=== PATIENT | male | born 1965 | race Caucasian/White ===

== ENCOUNTER 2025-04-21 00:34 | Inpatient (IN) | payer MEDICAID ==
[~2025-04-21] VITALS: Ht 190.5 cm; Wt 170.3 kg
--- NOTE | 2025-04-21 00:46 | Physician Documentation ---
History of Present Illness General Stated Complaint: LEG PAIN Time Seen by MD: 00:37 History of Present Illness Initial Comments This is a 59-year-old gentleman who self reports history of congestive heart failure, chronic bilateral lower extremity swelling, presents for evaluation of bilateral, right greater than left, swelling, pain for the last month. Also reports pain in his feet. No obvious trigger provocation. No palliating or aggravating factors. Does not know his ejection fraction. Does not have a formal diagnosis of diabetes states that he was diagnosed with a prediabetes . Came in today simply because could not stand the pain anymore. 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 Denies any concerns for tobacco, alcohol or illicit substances use Medication Reconciliation Allergies: Coded Allergies: No Known Allergies (Unverified , 04/21/25) Review of Systems ROS 10 point review of systems was performed and unless noted above in HPI is negative for acute process/complaint. Constitutional: Denies: fever, chills Physical Exam Physical Exam Physical Exam GENERAL: Awake, alert, oriented, GCS 15, no apparent distress, non-toxic appearing, answers questions, follows commands appropriately. High BMI gentleman examined immediately upon arrival on EMS gurney. HEENT: Atraumatic, normocephalic, pupils equal, extraocular muscles intact, sclerae anicteric, mucus membranes moist, oropharynx is clear, no stridor. NECK: supple, full active range of motion, trachea midline, no thyromegaly, no lymphadenopathy, no JVD. CARDIOVASCULAR: regular rate/rhythm, no murmurs/gallops/rubs, Pulses are 2+ in all extremities and symmetric. Capillary refill less than 2 seconds. PULMONARY: Nonlabored, good air movement ,no respiratory distress, speaking in full sentences, clear to auscultation bilaterally, no wheezing, no ronchi, no rales, no accessory muscle use. GASTROINTESTINAL: Soft, non-tender, non-distended, normal active bowel sounds, no organomegaly, no pulsatile masses, no CVA tenderness. NEUROLOGIC: Lucid with normal mental status. Normal facial symmetry. Moves all extremities symmetrically and with purpose. No truncal ataxia. Speech is fluid without evidence of dysarthria or aphasia, no focal deficits appreciated. MUSCULOSKELETAL: There is full range of motion of all extremities. There is no joint pain or joint swelling or joint erythema. There is no muscle pain or tenderness or swelling. EXTREMITIES: warm, poorly-perfused, bilateral cyanotic feet, no clubbing, no edema, no acute deformities. Chronic venous stasis changes to bilateral lower extremities. Multiple ulcerations in bilateral lower extremities, right greater than left. Some honey crusting discharge in the right lower extremity. Skin: warm, dry, no rashes or lesions, no jaundice, no petechiae orpurpura. No ecchymosis. PSYCHIATRIC: Normal affect, normal insight, normal concentration. Focused exam: [] Progress Results/Orders Results/Orders Orders - JORDI MILLS DO Culture Blood (04/21/25 00:38) Chest,Single View (04/21/25:38) Monitor (04/21/25 00:38) Saline Lock (04/21/25:38) Hs Troponin I W Calculations (04/21/25 02:38) Tib/Fib (04/21/25 00:38) Foot, Complete (3vw Min) (04/21/25 ) Magnesium Sulf-Water 2g/50ml (Magnesium (04/21/25 00:55) Completed Orders - JORDI MILLS DO Electrocardiogram (04/21/25:38) Cbc/Diff (04/21/25 00:38) ESR (04/21/25 00:38) C-Reactive Protein (04/21/25 00:38) Pt Inr (04/21/25:38) PTT (04/21/25 00:38) Chest,Single View (04/21/25:38) PBNP (04/21/25 00:38) MG (04/21/25 00:38) CMP (04/21/25 00:38) Hs Troponin I W Calculations (04/21/25:38) Lacticsepsis (04/21/25 00:38) Tib/Fib (04/21/25 00:38) Foot, Complete (3vw Min) (04/21/25 ) Gabapentin Capsule (Neurontin Capsule) (04/21/25 00:45) Medications Received in ER Medications (Trade) Dose Ordered Sig/Lauren Route PRN Reason Start Time Stop Time Status Last Admin Dose Admin (Neurontin capsule) 400 mg ONCE ONCE PO 04/21/25 00:45 04/21/25 02:25 DC 04/21/25 02:33 400 MG Magnesium Sulfate 50 ml @ 25 mls/hr ONCE ONCE IV 04/21/25 00:55 04/21/25 02:54 04/21/25 02:33 25 MLS/HR Vital Signs 04/21/25 04/21/25 04/21/25 00:46 00:52 01:42 Temp 98.5 Pulse 54 105 Resp 20 18 B/P (MAP) 135/92 131/89 (103) Pulse Ox 97 99 O2 Flow Rate 0 Laboratory Tests Test 04/21/25 01:00 White Blood Count 9.3 Red Blood Count 4.83 Hemoglobin 15.5 Hematocrit 46.5 Mean Corpuscular Volume 96.3 Mean Corpuscular Hemoglobin 32.1 H Mean Corpuscular Hemoglobin Concent 33.4 Red Cell Distribution Width 17.0 H Platelet Count 270 Mean Platelet Volume 8.5 Neutrophils (%) (Auto) 62.5 Lymphocytes (%) (Auto) 27.6 Monocytes (%) (Auto) 6.6 Eosinophils (%) (Auto) 2.1 Basophils (%) (Auto) 1.2 H Neutrophils # (Auto) 5.8 Lymphocytes # (Auto) 2.6 Monocytes # (Auto) 0.6 Eosinophils # (Auto) 0.2 Basophils # (Auto) 0.1 CBC Comment Erythrocyte Sedimentation Rate 5 Prothrombin Time 13.0 H INR International Normalized Ratio 1.3 Activated Partial Thromboplast Time 30 Coagulation Comments Sodium Level 137 Potassium Level 4.1 Chloride Level 100 Carbon Dioxide Level 24.3 Anion Gap 13 Blood Urea Nitrogen 9 Creatinine 1.00 Estimated GFR/1.73 m2 76 BUN/Creatinine Ratio 9.0 L Glucose Level 128 H Lactic Acid Level 3.2 H Calcium Level 8.6 Magnesium Level 2.0 Total Bilirubin 1.4 H Aspartate Amino Transf (AST/SGOT) 37 Alanine Aminotransferase (ALT/SGPT) 44 Alkaline Phosphatase 117 H Troponin I High Sensitivity 100 *H C-Reactive Protein 2.59 H Pro-B-Type Natriuretic Peptide 5241 H Total Protein 7.7 Albumin 3.4 Globulin 4.3 Albumin/Globulin Ratio 0.8 L Chemistry Comments EKG/XRAY/CT/US/VASC/MRI EKG : Additional Comment EKG was obtained and interpreted by myself shows sinus tachycardia rate of 133, normal OR interval, narrow QRS, prolonged QTC, normal axis, no STEMI. Multiple PVCs including a runs of monomorphic PVCs. Medical Decision Making Additional information obtaine: other (EMS) Findings Facility Status: ED Holds, RME process The plan was discussed with the patient, who demonstrates clear understanding of the plan and is in agreement with the plan unless otherwise noted in the chart. All questions have been answered, all concerns were addressed unless otherwise documented. I was available throughout their ED stay for frequent reassessment and questions. Differential Diagnoses (considered and possible or likely): [Cellulitis, chronic venous static changes, CHF, unlikely DVT, unlikely necrotizing infection, unlikely abscess, unlikely osteomyelitis. Peripheral arterial disease has also been considerably. Peripheral venous disease is self evident on clinical examination.] ??Differential Diagnoses (considered and unlikely, not requiring evaluation currently): [No evidence of traumatic injury] MDM Data Please see [facility] for the following: Independent Historians and external Records Re view. Historian: [Patient] Independent Historians: ?[EMS] Medication Management: [Reviewed medication list] Social History and determinants: [Reviewed] Please see the body of the note for the following: Any independent interpretations of ECG, imaging studies. All vitals signs/haemodynamics, ordered tests were independently reviewed and interpreted by myself. Nursing triage complaint and vitals reviewed, additional nursing notes were reviewed as available and I agree unless otherwise noted or documented in contradiction in the chart Vital Signs: Independently reviewed Labs: Independently interpreted Imaging: Independently interpreted Old Medical Records: Independently reviewed, see [facility] for relevant summary and information Pulse Oximetry: [93%] interpreted as [normal on room air] by me [Capture Manager: [Regular Rate, Regular rhythm, no ectopy, NSR] reviewed and interpreted by me] Additionally notably showing: [Hemodynamics reviewed. His tachycardic, not hypotensive, not febrile. CBC normal without evidence of leukocytosis, neutrophilic predominance, anemia, platelet abnormality. ESR is normal. Troponin is elevated so as BNP. Coagulation panel is unremarkable. Imaging of the foot shows no osteomyelitis, no soft tissue gas. Tib-fib x-ray shows unremarkable soft tissue, no bony abnormality. Chest x-ray shows cardiomegaly and pulmonary vascular congestion.] Tests considered but not ordered include: [Echocardiogram and further CHF workup can be done on an inpatient basis] Social Determinants of Health Impact: Patient was evaluated in [facility], or [facility] [place] to healthcare due to below par ratio of patient to medical providers. [] Comorbid Conditions Impacting Present Evaluation and Care/Treatment: [Congestive heart failure] Management Discussions with other Healthcare Providers: [Hospitalist regarding admission] Treatment and Disposition Medication Management (Given or considered): [Lasix]. See EMR for details Consideration for Hospitalization/Escalation/Deescalation of Care: Admission for observation is necessary for further workup of his CHF exacerbation and elevated troponin ?ED Course:?[No clinical deterioration or improvement.] ?Shared decision making:?[] Code status:?FULL Please see the full Electronic Medical Record for full details of nursing documentation, medications list, other records of complete past medical history and conditions, vital signs, laboratory studies, and any radiologic study interpretations by radiologists. Portions of this note were completed using [employer] [facility] dictation software and as a result there may exist minor errors in spelling. I have reviewed elements of past family and social history and agree as included in note. Differential Diagnosis See body of the main note for differential diagnosis Departure Disposition: ADMITTED INPATIENT Admitted to Inpatient Unit: to hospitalist Impression: Primary Impression: Lower extremity cellulitis Additional Impressions: Lower extremity edema Lower extremity pain Acute exacerbation of CHF (congestive heart failure) Elevated troponin Referrals: NO PRIMARY CARE PROVIDER (PCP) Signature Scribe Signature: No scribe Attestation: The note accurately reflects work and decisions made by me.Jordi Mills DO 04/21/25 00:45 JORDI MILLS DO Apr 21, 2025 00:46
--- NOTE | 2025-04-21 00:51 | ELECTROCARDIOGRAPH REPORT ---
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 Bhupendra Romero Measurements Intervals [place] Rate: 133 P: 69 [place]: 164 QRS: 51 QRSD: 97 T: 98 QT: 368 QTc: 548 Interpretive Statements Sinus tachycardia Paired ventricular premature complexes Anterior infarct, old Nonspecific T abnormalities, lateral leads Electronically Signed On 04-26-2025 0:22:[address] Bhupendra Romero Please click the below link to view image of tracing.
[2025-04-21 01:11] LABS: MEAN PLATELET VOLUME 8.5 FL (7.4-10.4); RED CELL DISTRIBUTION WIDTH 17.0 % (11.5-14.5)
[2025-04-21 01:23] LABS: APTT 30 SECONDS (22-32); INR 1.3 INR
[2025-04-21 01:31] LABS: CREATININE 1.00 MG/DL (0.60-1.10); TOTAL CARBON DIOXIDE 24.3 MMOL/L (24-32); eCRCL 95 ML/MIN; eGFR 76 ML/MIN
[2025-04-21 01:40] LABS: PRO BRAIN NATRIURETIC PEPTIDE 5241 PG/ML (0-125)
--- NOTE | 2025-04-21 01:46 | RADIOLOGY REPORT ---
CLINICAL INDICATION: swelling, pain, heel wound, osteo TECHNIQUE: FOOT CPLTDI FOOT, COMPLETE (3VW MIN), right COMPARISON: None FINDINGS/IMPRESSION: : No obvious erosive changes. No soft tissue gas. Generalized soft tissue edema. No fracture or malalignment.
--- NOTE | 2025-04-21 01:47 | RADIOLOGY REPORT ---
CLINICAL INDICATION: swelling, pain TECHNIQUE: TIB FIB 2VDI TIB/FIB 2 VWS, right COMPARISON: None FINDINGS/IMPRESSION: : There is no evidence of acute fracture or dislocation. Soft tissues are unremarkable.
--- NOTE | 2025-04-21 01:49 | RADIOLOGY REPORT ---
CHEST RADIOGRAPH INDICATION: Weakness TECHNIQUE: Single frontal view of the chest was obtained COMPARISON: None FINDINGS: Cardiac silhouette is mildly enlarged. Mild diffuse prominence of the pulmonary vasculature. Mild hazy opacity within the right mid and lower lung. No significant pleural effusions or pneumothorax. Bones and soft tissues demonstrate no significant abnormality. IMPRESSION: Mild cardiomegaly and pulmonary vascular congestion. Mild hazy opacity within the right mid and lower lung may represent atelectasis or developing infiltrate.
[2025-04-21] MEDS: magnesium sulf-water 2g/50mL 50 ML IV ONE (02:33)
[2025-04-21] MEDS ORDERED: mag hydrox/Alum hydrox/simeth 30ml oral suspension PO PRN (02:55)
[2025-04-21] MEDS ORDERED: potassium Cl 20 mEq SR tablet PO PRN ×2 (02:55)
[2025-04-21] MEDS ORDERED: magnesium hydroxide 30ml (MOM) UD suspension PO PRN (02:55)
[2025-04-21] MEDS ORDERED: magnesium sulf-water 2g/50mL 50 ML IV PRN (02:55)
[2025-04-21] MEDS ORDERED: magnesium sulf-water 4G/100mL 100 ML IV PRN (02:55)
[2025-04-21] MEDS ORDERED: ondansetron/PF 4mg/2ml inj IV PRN (02:55)
[2025-04-21] MEDS ORDERED: potassium Cl 40MEQ/1/2NS 520ml 520 ML IV PRN (02:55)
[2025-04-21] MEDS ORDERED: magnesium Cl slow-release 64mg tablet PO PRN (02:55)
--- NOTE | 2025-04-21 03:04 | HISTORY AND PHYSICAL-Residence ---
History & Physical Providers to CC Resident Creating Document: SURJIT RAMIREZ RES ~ History of Present Illness Primary Medical Doctor: None Reason for Admit\Complaint: Bilateral lower extremity cellulitis, acute CHF History of Present Illness This is a 59-year-old gentleman with a past medical history of congestive heart failure, prediabetes , CAD, hypertension chronic bilateral lower extremity swelling presented to the ER with chief complaints of the swelling and pain over the bilateral lower extremity. He endorses swelling of lower legs for quite a long time but however he is getting more swelling in the right side greater than left for the past 2 weeks. He also reports pain in the bilateral lower extremities, right more than the left, rated 8 to 9/10 associated with erythema. No aggravating or relieving factors. He recently moved here from son who say, to take care of his mom with a dementia . He endorses shortness of breath but denied orthopnea and PND. He is getting productive cough associated with mucoid sputum. He reported palpitations, irregular irregular for the past 4-6 weeks. He endorses sleeping disturbances and loss of appetite for the past 4-6 months. He denied wheezing, facial puffiness, fever, bladder and bowel irregularities, facial puffiness, wheezing. He denied abdominal pain, abdominal distention, slurring of speech, deviation of angle of mouth, seizures Discussed code status with the patient and he wants some time to decide upon and he agreed for full code until then. Allergies: Coded Allergies: No Known Allergies (Unverified , 04/21/25) Past Medical History Past Medical History Morbid obesity, class 3 Questionable NATE CHF Coronary artery disease Hypertension Past Surgical History Surgical History Comment Unknown Family History Family History: Patient reports no known family medical history. Past Social History Social History Comment He quit smoking 1 year back and he used to smoke 10 cigarettes per day for 35 years. He takes marijuana. He denied methamphetamine. He drinks alcohol, beer 4-5, occasionally Smoking: Quit greater than 1 year, Cigarettes, Less than 1 pack/day Alcohol Use: Occasionally Drug Use: Marijuana ROS All Other Systems: Reviewed and Negative ROS Reviewed in full and negative except positive pertinent as in HPI Exam Vitals: Vital Signs Date Time Temp Pulse Resp B/P (MAP) Pulse Ox O2 Delivery O2 Flow Rate FiO2 04/21/25 01:42 105 18 131/89 (103) 99 04/21/25 00:46 98.5 0 General: General: Alert, awake, oriented time place person., no apparent distress, non- toxic appearing, morbidly obese HEENT: Atraumatic, normocephalic, pupils equal, extraocular muscles intact, sclerae anicteric, mucus membranes moist, oropharynx is clear, no stridor. Neck: supple, full active range of motion, trachea midline, no thyromegaly, no lymphadenopathy, no JVD. Cardiovascular system: regular rate/rhythm, no murmurs/gallops/rubs, Pulses are 2+ in all extremities and symmetric. Capillary refill less than 2 seconds. Chest and respiratory system: Nonlabored, good air movement ,no respiratory distress, speaking in full sentences, clear to auscultation bilaterally except bilateral basal crepitations which was heard occasionally., no wheezing, no ronchi, no accessory muscle use. Gastrointestinal: Soft, non-tender, non-distended, normal active bowel sounds, no organomegaly, no pulsatile masses, no CVA tenderness. Neurological system: Higher mental functions are normal. Motor system: Tone, bulk, power is normal. Could not able to elicit the reflexes properly because of the 3+ edema. No sensory deficits. No signs of cerebellar dysfunction. No signs of meningitis.. Musculoskeletal system: There is full range of motion of all extremities. There is no joint pain or joint swelling or joint erythema. There is no muscle pain or tenderness or swelling. Extremities: warm, poorly-perfused, bilateral cyanotic feet, clubbing is present. no acute deformities. Bilateral lower extremity chronic venous stasis. Multiple ulcerations in bilateral lower extremities, right greater than left and it is weeping discharge on right side. Some honey crusting discharge in the right lower extremity. Bilateral pedal edema 3+ Skin: warm, dry, no rashes or lesions, no jaundice, no petechiae orpurpura. No ecchymosis. Psychiatric: Normal affect, normal insight, normal concentration. Diagnostic Data Last Recorded Lab Results: 04/21/259904/21/2599 Diagnostic Data: Laboratory Tests Test 04/21/25 01:00 Prothrombin Time 13.0 SECONDS (9.0-12.0) H INR International Normalized Ratio 1.3 INR Activated Partial Thromboplast Time 30 SECONDS (22-32) Coagulation Comments Advance Care Planning Advanced Care plannin - 30 Minutes Additional Plan Bilateral lower extremity cellulitis right more than left Possible sepsis Tachycardia is noted in vital signs WBC counts are normal. Lactic acid is elevated 3.2 trended down to 2.6, C-reactive protein is elevated We ordered 1 L of normal saline bolus Started on vancomycin pharmacy to dose and cefepime q.8h and deescalate the antibiotics based upon the culture results Possible acute systolic heart failure Troponins are 100 ProBNP is elevated in 5241 Chest x-ray showed cardiomegaly with bilateral pulmonary congestion. We will continue to diuresis with Lasix 20 mg IV b.i.d. to maintain euvolemia after initial fluid resuscitation for possible sepsis Started on carvedilol 6.25 p.o. b.i.d. Ordered echocardiogram and follow up with the results and start GDMT Troponinemia likely secondary to type 2 WI VPCs Nonsustained VT Troponins are 100 and trended down to 93 EKG showed PVCs and anteroseptal old infarct Consult sales operations specialist in the a.m. Maintain magnesium over 2 and potassium more than 4 and replace per protocol Hyperbilirubinemia Serum total bilirubin is 1.4 Hypertension Blood pressure is within the normal range and maintain blood pressure less than 130 Started on carvedilol 6.25 p.o. b.i.d. Surjit Ramirez IM resident, PGY2 Attending Physician Attestation Evaluation via HIPAA compliant A/V device. I discussed the case with the resident and I agree with the resident's documentation. 59-year-old man with bilateral cellulitis, elevated lactic acid level and symptoms of right heart failure. The treatment plan includes: Broad spectrum antimicrobial therapy while awaiting the micro studies. Transthoracic echocardiogram to assess LVEF, PA pressures and right ventricular function. time spent 50 minutes. Date of Service: Apr 21, 2025 Billing Provider: MARTINEZ JANSEN MD, VENKATESH, SAMUEL Apr 21, 2025 03:04 MARTINEZ JANSEN MD Apr 21, 2025 04:43
[2025-04-21] MEDS: furosemide 10 MG/1 ML 10ml inj IV ONE (03:32)
[2025-04-21 04:18] LABS: LEUKOCYTE ESTERASE ,URINE NEGATIVE (Neg); OCCULT BLOOD,URINE TRACE-INTACT (Neg)
[2025-04-21 04:19] LABS: NITRITES, URINE NEGATIVE (Neg); UA COLLECTION TYPE NON-SPECIFIED
[2025-04-21 04:27] LABS: SQUAMOUS EPITHELIAL CELL,UR FEW /LPF (FEW)
[2025-04-21] MEDS: morphine 4 MG/ML inj SYRINge IV ONE (04:32)
[2025-04-21] MEDS: CEFEPIME 2gm in D5W 50mL 50 ML IV SCH (05:15)
[2025-04-21] MEDS: normal saline 1000ml 1,000 ML IV ONE (05:15)
[2025-04-21] MEDS ORDERED: POTA-207 PO (05:45)
[2025-04-21] MEDS ORDERED: FURO40TA4 PO (05:45)
[2025-04-21] MEDS ORDERED: ATOR40TA72 PO (05:45)
[2025-04-21] MEDS ORDERED: CARV3.123 PO (05:45)
[2025-04-21] MEDS ORDERED: vancomycin/NS 1 GM ADD-VANTAGE 250 ML IV SCH ×2 (06:00→06:23)
[2025-04-21] MEDS: HYDROcodone/acetaminophen 5mg/325mg tablet PO PRN (06:01)
[2025-04-21] MEDS: K and/or MAG REPLACEMENT MC SCH (08:00)
[2025-04-21] MEDS: docusate sod 100mg capsule PO SCH (08:00)
[2025-04-21] MEDS: heparin, porcine 5000 units/ml vial SQ SCH (08:44)
[2025-04-21 08:46] LABS: PHOSPHORUS 3.1 MG/DL (2.3-4.5)
[2025-04-21] MEDS: morphine 4 MG/ML inj SYRINge IV PRN ×2 (09:35→14:12)
--- NOTE | 2025-04-21 14:08 | CARDIOLOGY REPORT ---
APPROVED REPORT EXAM: Comprehensive 2D, Doppler, and color-flow Echocardiogram. Patient Location: ED 3 Blood Pressure: 146/90 mmHg Heart Rate: 100'S bpm Rhythm: SINUS TACHYCARDIA Indications CONGESTIVE HEART FAILURE HYPERTENSION Sheet Sewer: NONE Previous echo: NONE 2D Dimensions LA Diam 2.2 cm IVSd 1.1 (0.7-1.1cm) LVDd 6.7 cm PWd 1.1 (0.7-1.1cm) IVSs 1.2 (0.8-1.2cm) LVDs 6.5 (2.5-4.0cm) PWs 1.3 (0.8-1.2cm) LVOT Diameter 2.18 (1.8-2.4cm) LVEF(%) 6.5 (>50%) FS (%) 2.9 % SV 15.4 ml CO 1.7 L/min M-Mode Dimensions Left Atrium(MM) 4.62 (2.5-4.0cm) Aortic Root 3.98 (2.2-3.7cm) Aortic Valve AoV Peak Brandt. 146.1 cm/s AoV VTI 22.3 cm AO Peak GR. 8.5 mmHg AO Mean GR. 5 mmHg LVOT VTI 15.02 cm LVOT Peak Brandt. 99.0 cm/s JARVIS (VTI) 2.51 cm2 AV DI 0.67 % Mitral Valve MV Peak Gr. 11 mmHg MV PHT 68 ms MVA (PHT) 3.24 cm2 MV VMax 165.2 cm/s LEFT VENTRICLE Severely dilated LV size and wall thickness. Overall systolic function is severely reduced. There is severe LV systolic dysfunction present. Overall estimated ejection fraction is about 10% RIGHT VENTRICLE RV appears to be moderately dilated with moderate RV systolic dysfunction. Poor echo windows ATRIA Left atrium is mildly dilated. AORTIC VALVE Trileaflet AV appears sclerotic without stenosis. No insufficiency by color and spectral flow Doppler. MITRAL VALVE Mild MV annular calcification without stenosis. Trace regurgitation by color and spectral flow Doppler. TRICUSPID VALVE TV appears structurally normal with trace regurgitation by color and spectral flow Doppler. PULMONIC VALVE Normal PV without stenosis, physiologic insufficiency by color and spectral flow Doppler. GREAT VESSELS Aortic root is dilated, at 3.98 cm. PERICARDIUM Normal pericardium. No effusion. Other Information Study Quality: Adequate, but difficult due to body habitus. Conclusion There is severe LV systolic dysfunction present. Overall estimated ejection fraction is about 10% Severely dilated LV size and wall thickness. Overall systolic function is severely reduced. RV appears to be moderately dilated with moderate RV systolic dysfunction. Poor echo windows Trileaflet AV appears sclerotic without stenosis. No insufficiency by color and spectral flow Doppler. Mild MV annular calcification without stenosis. Trace regurgitation by color and spectral flow Doppler. TV appears structurally normal with trace regurgitation by color and spectral flow Doppler. Normal PV without stenosis, physiologic insufficiency by color and spectral flow Doppler. Normal pericardium. No effusion.
[2025-04-21] MEDS: vancomycin/NS 1 GM ADD-VANTAGE 250 ML IV SCH (14:20)
[2025-04-21] MEDS: carvedilol 6.25mg tablet PO SCH (20:13)
[2025-04-21] MEDS: HYDROcodone/acetaminophen 10/325mg tab PO PRN (20:18)
[2025-04-22 07:16] VITALS: BP 100/79; PULSE 65; RESP 16; TEMP 98.8; O2SAT 96
[2025-04-22] MEDS: VANCOMYCIN LEVEL IV ONE (08:11)
[2025-04-22 08:57] LABS: MEAN PLATELET VOLUME 8.6 FL (7.4-10.4); RED CELL DISTRIBUTION WIDTH 16.9 % (11.5-14.5)
[2025-04-22 09:14] LABS: CREATININE 1.13 MG/DL (0.60-1.10); TOTAL CARBON DIOXIDE 27.3 MMOL/L (24-32); eCRCL 84 ML/MIN; eGFR 66 ML/MIN
[2025-04-22 11:00] VITALS: BP 121/75; PULSE 57; RESP 16; TEMP 97.4; O2SAT 97
[2025-04-22 15:00] VITALS: BP 127/72; PULSE 79; RESP 18; TEMP 98.1; O2SAT 96
--- NOTE | 2025-04-22 17:38 | PROGRESS NOTE ---
Daily Progress Note Providers to CC ~ no new complaint today resting comfortably in the bed Central Line/PICC still needed: No Knight-Non Protocol Knight Indications Met/Not Met: F/C Indications Not Met Antibiotic Timeout Antibiotic Ordered?: Yes MRSA Education MRSA Education Provided to pt: Yes Subjective As as above Objective Vital Signs Date Time Temp Pulse Resp B/P (MAP) Pulse Ox O2 Delivery O2 Flow Rate FiO2 04/22/25 15:43 16 04/22/25 11:53 Room Air 04/22/25 07:53 101 04/22/25 07:16 98.8 100/79 (86) 96 04/21/25 19:05 0 Vital signs, stable ,afebrile. Pulse Oximetry reflects adequate oxygenation. BMI is 46 weight 107 kg General: well developed, well nourished. Awake , alert, and oriented x4, resting comfortably in the bed, in no acute distress . Skin: Warm, dry, no pallor, no rash or petechiae. HEENT: Atraumatic, normocephalic, EOMI, anicteric sclera B; pink conjunctiva; PERRLA, normal oropharynx, moist oral and nasal mucosa. Tympanic membrane , nose , throat clear. Neck: Trachea midline. Supple, full range of motion, no JVD, bruit , hepatojugular reflex , lymphadenopathy or masses, or other lesions Cardiac: Regular rhythm, regular rate no murmurs, rubs, or gallops. Normal S1 and S2, no S3 noticed. PMI is normal. Respiratory: Equal breath sounds bilaterally, no tachypnea; lungs clear to auscultation bilaterally, no wheezing ,rub or rales, or crackles. Chest wall is symmetric and without deformity. No signs of trauma. Chest wall is nontender. No signs of respiratory distress. Resonance is normal upon percussion bilaterally. Gastrointestinal: Abdomen symmetric, non-distended, soft, non-tender, normal bowel sounds x4 quadrant, normoactive, no hepatosplenomegaly , no masses , no bruit, no flank pain bilaterally. No voluntary guarding, rebound, or rigidity. No tenderness to percussion. No pulsatile masses. Equal femoral pulses. No Carlton's sign or McBurney point tenderness. Back; no CVA tenderness bilaterally, no deformities. Neck and back are without deformity as well. No tenderness noted on palpation of the spinous processes. Spinous processes are midline. Cervical, thoracic, and lumbar paraspinal muscles are not tender and are without spasm. : normal external genitalia, without lesions, swelling, masses or tenderness. Musculoskeletal: Extremities, normal range of motion, non-tender, muscle strength 5/5 x 4. Negative Homans signs bilaterally on lower extremity. Distal pulses full symmetrical, no clubbing, cyanosis , edema. Neurological: Speech is clear, alert, and oriented x 4. No motor or sensory deficit, deep tendon reflexes normal, cerebellar intact. Cranial nerves II-XII intact. Psych: Alert and or appropriate, normal affect. Vascular: Good distal pulses, which are equal x4; capillary refill less than 2 seconds. Lymphatic, no lymphadenopathy. Result Diagram: 04/22/25 0831 04/22/25 0831 Coagulation Studies Laboratory Tests Test 04/21/25 01:00 Prothrombin Time 13.0 SECONDS (9.0-12.0) H INR International Normalized Ratio 1.3 INR Activated Partial Thromboplast Time 30 SECONDS (22-32) Coagulation Comments Problem\Assessment\Plan Assessment/Plan Bilateral lower extremity cellulitis right more than left Possible sepsis Tachycardia is noted in vital signs WBC counts are normal. Lactic acid is elevated 3.2 trended down to 2.6, C-reactive protein is elevated We ordered 1 L of normal saline bolus Started on vancomycin pharmacy to dose and cefepime q.8h and deescalate the antibiotics based upon the culture results Possible acute systolic heart failure Troponins are 100 ProBNP is elevated in 5241 Chest x-ray showed cardiomegaly with bilateral pulmonary congestion. We will continue to diuresis with Lasix 20 mg IV b.i.d. to maintain euvolemia after initial fluid resuscitation for possible sepsis Started on carvedilol 6.25 p.o. b.i.d. Ordered echocardiogram and follow up with the results and start GDMT Troponinemia likely secondary to type 2 [place] VPCs Nonsustained VT Troponins are 100 and trended down to 93 EKG showed PVCs and anteroseptal old infarct Consult clam sorter in the a.m. Maintain magnesium over 2 and potassium more than 4 and replace per protocol Hyperbilirubinemia Serum total bilirubin is 1.4 Hypertension Blood pressure is within the normal range and maintain blood pressure less than 130 Started on carvedilol 6.25 p.o. b.i.d. DVT gastropathy prophylaxis addressed Date of Service: Apr 22, 2025 Billing Provider: AMRIT BARNEY MD Common Visit Codes: [id number] INP/OBS CARE(HIGH) Secondary Visit Codes: [id number] CARE PLAN 30 MINUTES AMRIT BARNEY MD Apr 22, 2025 17:38
[2025-04-22 18:00] VITALS: BP 111/71; PULSE 79; RESP 16; TEMP 98.5; O2SAT 96
[2025-04-22 20:00] VITALS: RESP 16; O2SAT 96
[2025-04-22] MEDS: vancomycin/NS 1 GM ADD-VANTAGE 250 ML IV SCH (21:10)
[2025-04-22 22:00] VITALS: BP 120/73; PULSE 109; RESP 15; TEMP 97.6; O2SAT 96
[2025-04-23] VITALS (8 sets, daily range): BP systolic 102–137; BP diastolic 57–95; PULSE 77–99; RESP 15–26; TEMP 97–98.3; O2SAT 94–99
[2025-04-23 06:44] LABS: MEAN PLATELET VOLUME 8.9 FL (7.4-10.4); RED CELL DISTRIBUTION WIDTH 16.9 % (11.5-14.5)
[2025-04-23 06:53] LABS: CREATININE 0.98 MG/DL (0.60-1.10); TOTAL CARBON DIOXIDE 24.3 MMOL/L (24-32); eCRCL 97 ML/MIN; eGFR 78 ML/MIN
[2025-04-23] MEDS: VANCOMYCIN LEVEL IV ONE (11:30)
[2025-04-23] MEDS ORDERED: VANCOmycin 1250MG/NS 250ml Bag 250 ML IV SCH (15:00)
[2025-04-23] MEDS ORDERED: regadenoson 0.4mg/5ml syringe IV PRN (17:25)
[2025-04-23] MEDS ORDERED: aminophylline 250mg/10ml inj. IV PRN (17:25)
[2025-04-23] MEDS ORDERED: metoprolol tartrate 1mg/ml inj IV PRN (17:25)
--- NOTE | 2025-04-23 17:32 | CONSULTATION REPORT ---
History of Present Illness Providers to CC CC: ELIZABETH PAN MD ~ Reason for Admit\Admit Dx: Cardiology consultation Refering MD: None History of Present Illness Patient presented secondary to lower extremity edema. He states he has a history of heart failure, heart attack seven years ago leaving against medical advice before receiving treatment and hypertension. He does not have a primary care provider. Does not take medications on a regular basis. He states that his legs are always on the larger side. He has intermittent shortness for breath worse with anxiety. Complains of intermittent dyspnea on exertion but only when he is carrying things that are heavy. States he is unable to sleep lying flat but this is secondary to chronic back pain. Denies chest pain or pressure. Complains of intermittent palpitations. None currently. Was found to have an LVEF of 10% and cardiology consultation was requested. Allergies: Coded Allergies: morphine (Verified Allergy, Intermediate, HIVES; ITCHING, 04/21/25) Home Medications Home Medications Active Reported Furosemide 40 Mg Tablet 1 Tab PO DAILY Atorvastatin Calcium 40 Mg Tablet 1 Tab PO DAILY K-Dur* (Potassium Chloride) 20 Meq Tab.prt.sr 1 Tab PO DAILY Carvedilol 3.125 Mg Tablet 1 Tab PO BID Past Medical History Medical History Comment Heart failure States history of RI seven years ago leaving against medical advice without treatment Hypertension not on medications Past Surgical History Surgical History Comment Her bath fusion Orthopedic surgery Past Family History Family History: Patient reports no known family medical history. Past Social History Social History Comment Patient states he has history of drug use but last used in the 1980s. He quit smoking one year ago. States he last drank alcohol three months ago. Physical Exam Last Vital Signs Recorded: RN Vital Signs have been reviewed: Yes, Temperature: 97.1, Source: Oral, Heart Rate: 85, Respiratory Rate: 16, BP: 120/82, Pulse Oximetry: 98, Weight: 170.350 Physical Exam General: Awake, alert, oriented. No apparent distress Respiratory: Lungs are clear to auscultation bilaterally. No respiratory distress. Chest: Normal shape and size. No accessory muscle use. Cardiovascular: Regular rate and rhythm. S1-S2. No murmur, gallop, rub. Extremities: Chronic venous stasis changes to the lower extremities. Plus one lower extremity pitting edema. Neurologic: Alert and oriented x4. Nonfocal Psychiatric: Normal mood and affect. Skin: Normal color. Warm and dry. Review of Systems ROS Review of systems negative except documented in HPI. Results EKG EKG Sinus tachycardia rate of 133. Multifocal PVCs are noted. Echocardiogram Echocardiogram Conclusion There is severe LV systolic dysfunction present. Overall estimated ejection fraction is about 10% Severely dilated LV size and wall thickness. Overall systolic function is severely reduced. RV appears to be moderately dilated with moderate RV systolic dysfunction. Poor echo windows Trileaflet AV appears sclerotic without stenosis. No insufficiency by color and spectral flow Doppler. Mild MV annular calcification without stenosis. Trace regurgitation by color and spectral flow Doppler. TV appears structurally normal with trace regurgitation by color and spectral flow Doppler. Normal PV without stenosis, physiologic insufficiency by color and spectral flow Doppler. Normal pericardium. No effusion. Dictated by:MICKIE GOMEZ MD Dictation date and time:04/21/251406 Electronically Signed by: MICKIE GOMEZ MD Date and Time: 04/21/25 140 Diagram Lab Result Diagram: 04/23/25 0600 04/23/25 0600 Assessment/Plan Additional Plan Patient presents secondary to increased lower extremity edema. The following is his problem list: Heart failure with reduced ejection fraction Biventricular failure Suspect acute on chronic given stated history Recommend guideline directed medical therapy --continue carvedilol 6.25 mg b.i.d. --start Entresto 24-26 mg b.i.d. --start Jardiance 10 mg daily --discussed LifeVest. Patient is agreeable. Recommend case management consultation. --recommend ischemic evaluation. Stress test was ordered. Bilateral lower extremity cellulitis --management per hospitalist Minimally elevated troponins No chest pain or pressure Suspect RI type 2 --ischemic evaluation as noted above --Check lipids. --ASA 81 mg daily Case discussed with Dr. Bridget Pan who is in agreement with this plan. Supervising MD Supervising Physician: BUFFY Downs NP Apr 23, 2025 17:32
[2025-04-23 18:08] LABS: CHOL/HDL RATIO 3.3 (0.00-4.99); LDL CHOLESTEROL 62 MG/DL (50-100)
--- NOTE | 2025-04-23 19:40 | PROGRESS NOTE ---
Daily Progress Note Providers to CC ~ today, less lower extremity edema less shortness of breath Central Line/PICC still needed: No Knight-Non Protocol Knight Indications Met/Not Met: F/C Indications Not Met Antibiotic Timeout Antibiotic Ordered?: Yes MRSA Education MRSA Education Provided to pt: Yes Subjective As above Objective Vital Signs Date Time Temp Pulse Resp B/P (MAP) Pulse Ox O2 Delivery O2 Flow Rate FiO2 04/23/25 15:00 98.3 77 26 132/83 (99) 96 Room Air 04/21/25 19:05 0 Vital signs, stable ,afebrile. Pulse Oximetry reflects adequate oxygenation. General: well developed, well nourished. Awake , alert, and oriented x4, resting comfortably in the bed, in no acute distress . Skin: Warm, dry, no pallor, no rash or petechiae. HEENT: Atraumatic, normocephalic, EOMI, anicteric sclera B; pink conjunctiva; PERRLA, normal oropharynx, moist oral and nasal mucosa. Tympanic membrane , nose , throat clear. Neck: Trachea midline. Supple, full range of motion, no JVD, bruit , hepatojugular reflex , lymphadenopathy or masses, or other lesions Cardiac: Regular rhythm, regular rate no murmurs, rubs, or gallops. Normal S1 and S2, no S3 noticed. PMI is normal. Respiratory: Equal breath sounds bilaterally, no tachypnea; lungs clear to auscultation bilaterally, no wheezing ,rub or rales, or crackles. Chest wall is symmetric and without deformity. No signs of trauma. Chest wall is nontender. No signs of respiratory distress. Resonance is normal upon percussion bilaterally. Gastrointestinal: Abdomen symmetric, non-distended, soft, non-tender, normal bowel sounds x4 quadrant, normoactive, no hepatosplenomegaly , no masses , no bruit, no flank pain bilaterally. No voluntary guarding, rebound, or rigidity. No tenderness to percussion. No pulsatile masses. Equal femoral pulses. No Carlton's sign or McBurney point tenderness. Back; no CVA tenderness bilaterally, no deformities. Neck and back are without deformity as well. No tenderness noted on palpation of the spinous processes. Spinous processes are midline. Cervical, thoracic, and lumbar paraspinal muscles are not tender and are without spasm. : normal external genitalia, without lesions, swelling, masses or tenderness. Musculoskeletal: Extremities, normal range of motion, non-tender, muscle strength 5/5 x 4. Negative Homans signs bilaterally on lower extremity. Distal pulses full symmetrical, no clubbing, cyanosis , edema. Neurological: Speech is clear, alert, and oriented x 4. No motor or sensory deficit, deep tendon reflexes normal, cerebellar intact. Cranial nerves II-XII intact. Psych: Alert and or appropriate, normal affect. Vascular: Good distal pulses, which are equal x4; capillary refill less than 2 seconds. Lymphatic, no lymphadenopathy. Result Diagram: 04/23/25 0600 04/23/25 0600 Coagulation Studies Laboratory Tests Test 04/21/25 01:00 Prothrombin Time 13.0 SECONDS (9.0-12.0) H INR International Normalized Ratio 1.3 INR Activated Partial Thromboplast Time 30 SECONDS (22-32) Coagulation Comments Problem\Assessment\Plan Assessment/Plan Bilateral lower extremity cellulitis right more than left Possible sepsis Tachycardia is noted in vital signs WBC counts are normal. Lactic acid is elevated 3.2 trended down to 2.6, C-reactive protein is elevated We ordered 1 L of normal saline bolus Started on vancomycin pharmacy to dose and cefepime q.8h and deescalate the antibiotics based upon the culture results Possible acute systolic heart failure Cardiology assistance and expertise appreciated Troponins are 100 ProBNP is elevated in 5241 Chest x-ray showed cardiomegaly with bilateral pulmonary congestion. We will continue to diuresis with Lasix 20 mg IV b.i.d. to maintain euvolemia after initial fluid resuscitation for possible sepsis Started on carvedilol 6.25 p.o. b.i.d. Ordered echocardiogram and follow up with the results and start GDMT Troponinemia likely secondary to type 2 [place] VPCs Nonsustained VT Troponins are 100 and trended down to 93 EKG showed PVCs and anteroseptal old infarct Consult competitive athlete in the a.m. Maintain magnesium over 2 and potassium more than 4 and replace per protocol Hyperbilirubinemia Serum total bilirubin is 1.4 Hypertension Blood pressure is within the normal range and maintain blood pressure less than 130 Started on carvedilol 6.25 p.o. b.i.d. DVT gastropathy prophylaxis addressed Date of Service: Apr 23, 2025 Billing Provider: AMRIT BARNEY MD Common Visit Codes: [id number] INP/OBS CARE(HIGH) AMRIT BARNEY MD Apr 23, 2025 19:40
[2025-04-23] MEDS: sacubitril/valsartan 24mg-26mg tablet PO SCH (21:01)
[2025-04-23] MEDS: VANCOmycin 1250MG/NS 250ml Bag 250 ML IV SCH (23:30)
[2025-04-24] VITALS (8 sets, daily range): BP systolic 90–140; BP diastolic 49–71; PULSE 55–96; RESP 15–20; TEMP 97–97.9; O2SAT 94–100
[2025-04-24 00:46] LABS: URINE AMPHETAMINE SCREEN NEGATIVE (Neg); URINE BARBITUATE SCREEN NEGATIVE (Neg); URINE BENZODIAZEPINES SCREEN NEGATIVE (Neg); URINE CANNABINOID SCREEN NEGATIVE (Neg); URINE COCAINE SCREEN NEGATIVE (Neg); URINE METHADONE SCREEN NEGATIVE (Neg); URINE OPIATE SCREEN POSITIVE (Neg); URINE PHENCYCLIDINE SCREEN NEGATIVE (Neg)
[2025-04-24 08:11] LABS: MEAN PLATELET VOLUME 8.9 FL (7.4-10.4); RED CELL DISTRIBUTION WIDTH 17.6 % (11.5-14.5)
[2025-04-24 08:21] LABS: CREATININE 1.00 MG/DL (0.60-1.10); TOTAL CARBON DIOXIDE 24.1 MMOL/L (24-32); eCRCL 95 ML/MIN; eGFR 76 ML/MIN
[2025-04-24] MEDS: EMPAGLIFLOZIN 10 MG TABLET PO SCH (08:32)
--- NOTE | 2025-04-24 19:55 | PROGRESS NOTE ---
Daily Progress Note Providers to CC Feels better today, less lower extremity edema ~ Central Line/PICC still needed: No Antibiotic Timeout Antibiotic Ordered?: Yes MRSA Education MRSA Education Provided to pt: Yes Subjective As above Objective Vital Signs Date Time Temp Pulse Resp B/P (MAP) Pulse Ox O2 Delivery O2 Flow Rate FiO2 04/24/25 17:52 18 04/24/25 15:00 97.9 62 117/67 (84) 96 Room Air 04/21/25 19:05 0 Vital signs, stable ,afebrile. Pulse Oximetry reflects adequate oxygenation. General: well developed, well nourished. Awake , alert, and oriented x4, resting comfortably in the bed, in no acute distress . Skin: Warm, dry, no pallor, no rash or petechiae. HEENT: Atraumatic, normocephalic, EOMI, anicteric sclera B; pink conjunctiva; PERRLA, normal oropharynx, moist oral and nasal mucosa. Tympanic membrane , nose , throat clear. Neck: Trachea midline. Supple, full range of motion, no JVD, bruit , hepatojugular reflex , lymphadenopathy or masses, or other lesions Cardiac: Regular rhythm, regular rate no murmurs, rubs, or gallops. Normal S1 and S2, no S3 noticed. PMI is normal. Respiratory: Equal breath sounds bilaterally, no tachypnea; lungs clear to auscultation bilaterally, no wheezing ,rub or rales, or crackles. Chest wall is symmetric and without deformity. No signs of trauma. Chest wall is nontender. No signs of respiratory distress. Resonance is normal upon percussion bilaterally. Gastrointestinal: Abdomen symmetric, non-distended, soft, non-tender, normal bowel sounds x4 quadrant, normoactive, no hepatosplenomegaly , no masses , no bruit, no flank pain bilaterally. No voluntary guarding, rebound, or rigidity. No tenderness to percussion. No pulsatile masses. Equal femoral pulses. No Carlton's sign or McBurney point tenderness. Back; no CVA tenderness bilaterally, no deformities. Neck and back are without deformity as well. No tenderness noted on palpation of the spinous processes. Spinous processes are midline. Cervical, thoracic, and lumbar paraspinal muscles are not tender and are without spasm. : normal external genitalia, without lesions, swelling, masses or tenderness. Musculoskeletal: Extremities, normal range of motion, non-tender, muscle strength 5/5 x 4. Negative Homans signs bilaterally on lower extremity. Distal pulses full symmetrical, no clubbing, cyanosis , edema. Neurological: Speech is clear, alert, and oriented x 4. No motor or sensory deficit, deep tendon reflexes normal, cerebellar intact. Cranial nerves II-XII intact. Psych: Alert and or appropriate, normal affect. Vascular: Good distal pulses, which are equal x4; capillary refill less than 2 seconds. Lymphatic, no lymphadenopathy. Result Diagram: 04/24/25 0656 04/24/25 0656 Coagulation Studies Laboratory Tests Test 04/21/25 01:00 Prothrombin Time 13.0 SECONDS (9.0-12.0) H INR International Normalized Ratio 1.3 INR Activated Partial Thromboplast Time 30 SECONDS (22-32) Coagulation Comments Problem\Assessment\Plan Assessment/Plan Bilateral lower extremity cellulitis right more than left Possible sepsis Tachycardia is noted in vital signs WBC counts are normal. Lactic acid is elevated 3.2 trended down to 2.6, C-reactive protein is elevated We ordered 1 L of normal saline bolus Started on vancomycin pharmacy to dose and cefepime q.8h and deescalate the antibiotics based upon the culture results Possible acute systolic heart failure Cardiology assistance and expertise appreciated Troponins are 100 ProBNP is elevated in 5241 Chest x-ray showed cardiomegaly with bilateral pulmonary congestion. We will continue to diuresis with Lasix 20 mg IV b.i.d. to maintain euvolemia after initial fluid resuscitation for possible sepsis Started on carvedilol 6.25 p.o. b.i.d. Ordered echocardiogram and follow up with the results and start GDMT Troponinemia likely secondary to type 2 [place] VPCs Nonsustained VT Troponins are 100 and trended down to 93 EKG showed PVCs and anteroseptal old infarct Consult packing machine inspector in the a.m. Maintain magnesium over 2 and potassium more than 4 and replace per protocol Hyperbilirubinemia Serum total bilirubin is 1.4 Hypertension Blood pressure is within the normal range and maintain blood pressure less than 130 Started on carvedilol 6.25 p.o. b.i.d. DVT gastropathy prophylaxis addressed Date of Service: Apr 24, 2025 Billing Provider: AMRIT BARNEY MD Common Visit Codes: [id number] INP/OBS CARE(HIGH) MARIT BARNEY MD Apr 24, 2025 19:55
[2025-04-24] MEDS: VANCOMYCIN LEVEL IV ONE (23:05)
[2025-04-25 02:00] VITALS: BP 113/57; PULSE 83; RESP 16; TEMP 98.2; O2SAT 97
[2025-04-25] MEDS: diazepam inj 5 MG/ML inj. IV ONE (02:28)
[2025-04-25 07:00] VITALS: BP 112/63; PULSE 84; RESP 18; TEMP 98.2; O2SAT 94
[2025-04-25 07:50] LABS: MEAN PLATELET VOLUME 9.1 FL (7.4-10.4); RED CELL DISTRIBUTION WIDTH 17.2 % (11.5-14.5)
[2025-04-25 08:00] VITALS: RESP 18; O2SAT 94
[2025-04-25 08:13] LABS: CREATININE 1.05 MG/DL (0.60-1.10); TOTAL CARBON DIOXIDE 27.5 MMOL/L (24-32); eCRCL 91 ML/MIN; eGFR 72 ML/MIN
[2025-04-25] MEDS: VANCOMYCIN 750MG IV in NS 250 ML IV SCH (10:55)
[2025-04-25 11:00] VITALS: PULSE 78; RESP 17; TEMP 97.5; O2SAT 94
[2025-04-25] MEDS ORDERED: HYDR50TA65 PO (12:02)
[2025-04-25] MEDS ORDERED: SPIR25TA PO ×2 (12:02→13:56)
[2025-04-25] MEDS ORDERED: HYDR-3965 PO ×2 (12:02→13:56)
[2025-04-25] MEDS ORDERED: SACU1TAB PO ×2 (12:02→13:56)
[2025-04-25] MEDS ORDERED: ASPI81TA52 PO ×2 (12:02→13:56)
[2025-04-25] MEDS ORDERED: CEPH500C82 PO (12:02)
[2025-04-25] MEDS ORDERED: EMPA10TA PO ×2 (12:02→13:56)
[2025-04-25] MEDS ORDERED: CEPH-268 PO (13:56)
[2025-04-25] MEDS ORDERED: CARV3.122 PO (13:56)
[2025-04-25] MEDS ORDERED: HYDR-3686 PO (13:56)
[2025-04-25 14:36] VITALS: RESP 16
--- NOTE | 2025-04-25 19:42 | DISCHARGE SUMMARY ---
Discharge Summary Providers to CC Today patient is feeling better, asking to be discharged home ~ Discharge Summary Assessment Lower extremity cellulitis NATE CHF in exacerbation, reduced ejection fraction Non ST-elevation MA type 2 secondary to above Coronary artery disease Hypertension Hyperbilirubinemia Nonsustained V-tach Admission Diagnosis: ACUTE EXACERBATION OF CHF, LOWER EXTREMITY CELLULITIS, TROPONINEMIA Admission Diagnosis Comment: Lower extremity cellulitis NATE CHF in exacerbation, reduced ejection fraction Non ST-elevation MA type 2 secondary to above Coronary artery disease Hypertension Hyperbilirubinemia Nonsustained V-tach Hospital Course DATE OF ADMISSION: April 21, 2025 DATE OF DISCHARGE: April 25, 2025 Discharge Diagnosis\Comment: Lower extremity cellulitis NATE CHF in exacerbation, reduced ejection fraction Non ST-elevation MA type 2 secondary to above Coronary artery disease Hypertension Hyperbilirubinemia Nonsustained V-tach Operations\Procedures: Non Consultants: Cardiology provider Complications: Non Condition on DC: Stable Discharge Summary: This is a 59-year-old gentleman with a past medical history of congestive heart failure, prediabetes , CAD, hypertension chronic bilateral lower extremity swelling presented to the ER with chief complaints of the swelling and pain over the bilateral lower extremity. He endorses swelling of lower legs for quite a long time but however he is getting more swelling in the right side greater than left for the past 2 weeks. He also reports pain in the bilateral lower extremities, right more than the left, rated 8 to 9/10 associated with erythema. No aggravating or relieving factors. He recently moved here from son who say, to take care of his mom with a dementia . He endorses shortness of breath but denied orthopnea and PND. He is getting productive cough associated with mucoid sputum. He reported palpitations, irregular irregular for the past 4-6 weeks. He endorses sleeping disturbances and loss of appetite for the past 4-6 months. He denied wheezing, facial puffiness, fever, bladder and bowel irregularities, facial puffiness, wheezing. He denied abdominal pain, abdominal distention, slurring of speech, deviation of angle of mouth, seizures, Discussed code status with the patient and he wants some time to decide upon and he agreed for full code until then. He patient was extensively evaluated treated today patient is feeling better asking to be discharged home patient will be discharged in stable condition medication reconciled, today on physical exam Vital signs, stable ,afebrile. Pulse Oximetry reflects adequate oxygenation. General: well developed, well nourished. Awake , alert, and oriented x4, resting comfortably in the bed, in no acute distress . Skin: Warm, dry, no pallor, no rash or petechiae. HEENT: Atraumatic, normocephalic, EOMI, anicteric sclera B; pink conjunctiva; PERRLA, normal oropharynx, moist oral and nasal mucosa. Tympanic membrane , nose , throat clear. Neck: Trachea midline. Supple, full range of motion, no JVD, bruit , hepatojugular reflex , lymphadenopathy or masses, or other lesions Cardiac: Regular rhythm, regular rate no murmurs, rubs, or gallops. Normal S1 and S2, no S3 noticed. PMI is normal. Respiratory: Equal breath sounds bilaterally, no tachypnea; lungs clear to auscultation bilaterally, no wheezing ,rub or rales, or crackles. Chest wall is symmetric and without deformity. No signs of trauma. Chest wall is nontender. No signs of respiratory distress. Resonance is normal upon percussion bilaterally. Gastrointestinal: Abdomen symmetric, non-distended, soft, non-tender, normal bowel sounds x4 quadrant, normoactive, no hepatosplenomegaly , no masses , no bruit, no flank pain bilaterally. No voluntary guarding, rebound, or rigidity. No tenderness to percussion. No pulsatile masses. Equal femoral pulses. No Carlton's sign or McBurney point tenderness. Back; no CVA tenderness bilaterally, no deformities. Neck and back are without deformity as well. No tenderness noted on palpation of the spinous processes. Spinous processes are midline. Cervical, thoracic, and lumbar paraspinal muscles are not tender and are without spasm. : normal external genitalia, without lesions, swelling, masses or tenderness. Musculoskeletal: Extremities, normal range of motion, non-tender, muscle strength 5/5 x 4. Negative Homans signs bilaterally on lower extremity. Distal pulses full symmetrical, no clubbing, cyanosis , edema. Neurological: Speech is clear, alert, and oriented x 4. No motor or sensory deficit, deep tendon reflexes normal, cerebellar intact. Cranial nerves II-XII intact. Psych: Alert and or appropriate, normal affect. Vascular: Good distal pulses, which are equal x4; capillary refill less than 2 seconds. Lymphatic, no lymphadenopathy. *Problems/Diagnosis: (1) Lower extremity cellulitis Status: Acute (2) Elevated troponin Status: Acute (3) Congestive heart failure Status: Acute Total Time Spent on D/C: > 30 Minutes Date of Service: Apr 25, 2025 Billing Provider: AMRIT BARNEY MD Common Visit Codes: [id number]/OBS DISCH DAY >30min AMRIT BARNEY MD Apr 25, 2025 19:42
[2025-04-26] MEDS ORDERED: VANCOMYCIN LEVEL IV ONE (09:30)
== END 2025-04-25 14:40 | disposition home health service (06) | DRG 194 ==
LOC: ER 00:35 → ED HOLD 03:00 → EDBEDREQ 04-22 05:44 → PCU 3S 04-22 07:09 → UNDODISIN 04-25 14:26
PROVIDERS: ADMIT Internal Medicine; ATTEND Family Medicine
DX: I11.0 Hypertensive heart disease with heart failure (principal); I47.20 Ventricular tachycardia, unspecified; I21.A1 Myocardial infarction type 2; L03.115 Cellulitis of right lower limb; L03.116 Cellulitis of left lower limb; I50.23 Acute on chronic systolic (congestive) heart failure; E80.6 Other disorders of bilirubin metabolism; I25.10 Atherosclerotic heart disease of native coronary artery without angina pectoris; G47.33 Obstructive sleep apnea (adult) (pediatric); F41.9 Anxiety disorder, unspecified; G89.29 Other chronic pain; I25.2 Old myocardial infarction; Z79.899 Other long term (current) drug therapy; Z87.891 Personal history of nicotine dependence
CPT/HCPCS: 36415; 71045; 73590; 73630; 80053; 80061; 80202; 80305; 81001; 83605; 83735; 83880; 84100; 84132; 84484; 85025; 85610; 85651; 85730; 86140; 87040; 87081; 93005; 93306; 96365; 97110; 97116; 97162; 99285; G0378; J0692; J1200; J1644; J1938; J2270; J3360; J3373; J3374; J7030; J7040; J7050